=== PATIENT | female | born 1970 | race African-American/Black ===

== ENCOUNTER 2017-01-28 13:32 | Emergency (ER) | payer BC ==
[2015-11-26 21:47] VITALS: BMI 24.0
[~2017-01-28 13:32] MED LIST: AMITRIPTYLINE100 MG PO; ATIVAN0.5 MG PO; BUTALB-APAP-CA1 EACH PO; ELMIRON100 MG PO; LEVAQUIN500 MG PO; PHENERGAN25 M1; PHENERGAN25 M1 PO; TORADOL10 MG PO; VOLTAREN75 MG PO
[2017-01-28 15:23] LABS: BASOPHILS 0.4 % (0.0-2.0); EOSINOPHILS 0.9 % (0-7); HEMATOCRIT 32.9 % (36.0-48.0); HEMOGLOBIN 10.6 g/dL (12-16); IMMATURE GRANULOCYTES 0.1 % (0-5); MCHC 32.2 g/dL (31.0-37.0); MCV 90.1 fL (80.0-100.0); MEAN PLATELET VOLUME 9.8 fL (7.4-10.4); NEUTROPHILS 68.6 % (40-80); PLATELET COUNT 272 10x3/uL (130-400); RBC 3.65 10x6/uL (4.00-5.40); RDW 13.8 % (11.5-14.5); WBC 7.9 10x3/uL (4.8-10.8)
[2017-01-28 15:33] LABS: APPEARANCE CLEAR (CLEAR); BILIRUBIN NEGATIVE (NEGATIVE); COLOR ORANGE (YELLOW); GLUCOSE NEGATIVE (NEGATIVE); KETONE NEGATIVE (NEGATIVE); LEUKOCYTE ESTERASE NEGATIVE (NEGATIVE); NITRITE POSITIVE (NEGATIVE); PROTEIN NEGATIVE (NEGATIVE); UROBILINOGEN NORMAL (NORMAL)
[2017-01-28 15:34] LABS: BACTERIA FEW /hpf (NONE SEEN); EPITHELIAL CELLS 0-5 /hpf (0-5); RED CELLS - URINE NONE SEEN /hpf (0-5); WHITE CELLS - URINE 0-5 /hpf (0-5)
[2017-01-28 15:37] LABS: UDS - AMPHET NEGATIVE QUAL (NEGATIVE); UDS - BARB POSITIVE QUAL (NEGATIVE); UDS - BENZO NEGATIVE QUAL (NEGATIVE); UDS - COCAINE NEGATIVE QUAL (NEGATIVE); UDS - METH NEGATIVE QUAL (NEGATIVE); UDS - OPIATE NEGATIVE QUAL (NEGATIVE); UDS - PCP NEGATIVE QUAL (NEGATIVE); UDS - THC NEGATIVE QUAL (NEGATIVE)
[2017-01-28 15:37] LABS: ALBUMIN 2.9 g/dL (3.4-5.0); ANION GAP 9.1 mmol/L (8-16); BILIRUBIN - TOTAL 0.1 mg/dL (0.2-1.3); CARBON DIOXIDE 28.9 mmol/L (21.0-32.0); CREATININE - SERUM 0.9 mg/dL (0.6-1.3); PROTEIN - SERUM 6.4 g/dL (6.4-8.2)
== END 2017-01-28 17:01 | disposition home or self-care (01) ==
LOC: D.ER 13:32
PROVIDERS: Emergency Medicine
DX: R55 Syncope and collapse (principal); I95.9 Hypotension, unspecified

== ENCOUNTER → 2019-04-12 09:00 | Outpatient (CLI) | payer OTHER ==
[2015-11-26 21:47] VITALS: BMI 24.0
--- NOTE | 2019-04-17 10:06 | EC ---
PATIENT:BOWEN DATE OF SERVICE: 04/12/19 SEX: F MEDICAL RECORD: [id number] DATE OF : 74 [facility] AGE OF PATIENT: 48 ADMISSION DATE: 04/12/19 REFERRING PHYSICIAN: INTERPRETING PHYSICIAN: JAZMINE STANTON MD ECHOCARDIOGRAM REPORT ECHO CHARGES 4 ECHO COMPLETE Date: 04/12/19 CLINICAL DIAGNOSIS: PVC'S/CP/PALPITATIONS/HTN ECHOCARDIOGRAPHIC MEASUREMENTS (adult normal given) AC root (d.<3.7cm) 3.4 cm LV Septum d (<1.2 cm> 1.4 cm Valve Excursion 2.0 cm LV Septum (systole) 1.5 cm Left Atria (s.<4.0cm> 3.4 cm LVPW d(<1.2cm) 1.1 cm RV (d.<2.3cm) 2.2 cm LVPW (sytole) 1.5 cm LV diastole(<5.6CM) 3.9 cm MV E-F(>70mm/sec) cm LV systole 2.9 cm LVOT Diameter 2.1 cm MV exc.(>10mm) cm Est.ejection fraction (50-75%) % DOPPLER: LVIT cm/sec A 76.0 cm/sec E 52.0 cm/sec LA cm/sec RVSP 29.0 mmHg LVOT 72.0 cm/sec AOP1/2T m/s Asc. Ao 126 cm/sec RVOT 52.0 cm/sec RA cm/sec PA 77.0 cm/sec AV Gradient Peak 6.3 mmHg AV Mean 3.9 mmHg AV Area 2.2 cm MV Gradient Peak 2.3 mmHg MV Mean 0.92 mmHg MV Area cm COMMENTS: OP - HC Ethyl Blender: 1 OTONIEL GURNEE Medical Services Coordinator: 3 Dr. Burns TAPE# PACS Pericardial Effusion N DATE OF SERVICE: 04/12/2019 Adequate 2-D echo, color-flow and spectral Doppler, and M-mode. Borderline LVH. LV internal dimension is normal. Wall motion is normal. EF is greater than or equal to 55%. Aortic valve is tricuspid. No evidence of stenosis by Doppler interrogation. Left atrium is normal at 3.4 cm. Mitral valve shows no prolapse. Trace MR. Right-sided chamber is grossly normal. Trace TR. ECHOCARDIOGRAM REPORT [id number] INGE WISEMAN TRANSINT:[id number] Voice Confirmation ID: [id number] DOCUMENT ID: [id number] JAZMINE STANTON MD at 1006 CC: [id number] DICTATION DATE: 04/12/19 1605 PSYCHIATRIC NP: 04/13/19 0214 DEP CLI 04/12/19 [place] [id number] [place] [id number]
== END | disposition home or self-care (01) ==
LOC: D.HCCARDIO 09:00
PROVIDERS: ATTEND Internal Medicine Interventional Cardiology
DX: R07.9 Chest pain, unspecified (principal)

== ENCOUNTER → 2019-05-15 19:59 | Outpatient (CLI) | payer OTHER ==
[2015-11-26 21:47] VITALS: BMI 24.0
== END | disposition home or self-care (01) ==
LOC: D.LABREF 19:59
PROVIDERS: ATTEND Urology
DX: R31.9 Hematuria, unspecified (principal); D72.829 Elevated white blood cell count, unspecified

== ENCOUNTER 2019-05-30 07:10 | Day surgery (SDC) | payer OTHER ==
[~2019-05-30] VITALS: Ht 157.5 cm; Wt 57.2 kg
[~2019-05-30 07:10] MED LIST changes: +LOPRESSOR25 MG PO
[2019-05-30 07:33] LABS: HEMOGLOBIN 12.9 g/dL (12-16); MCH 30.2 pg (26.0-34.0); MCHC 33.9 g/dL (31.0-37.0); MEAN PLATELET VOLUME 9.4 fL (7.4-10.4); RBC 4.27 10x6/uL (4.00-5.40); RDW 14.2 % (11.5-14.5); WBC 7.4 10x3/uL (4.8-10.8)
[2019-05-30 08:05] VITALS: BP 132/86; Ht 157.5 cm; Wt 57.2 kg
--- NOTE | 2019-05-30 13:00 | OP ---
PATIENT NAME: INGE WISEMAN MEDICAL RECORD: [id number] :74 LOCATION:D.OPS ADMISSION DATE: SURGEON: NIGEL YADAV MD DATE OF OPERATION: 05/30/2019 SURGEON: Nigel Yadav MD ANESTHESIA: TIVA by Adalid Perla CRNA DIAGNOSIS: Interstitial cystitis. PROCEDURES: Cystoscopy, hydrodistention and intravesical Rimso instillation. FINDINGS: Diffuse bladder inflammation with no Hunner's ulcers seen. Single ureteral orifices bilaterally. No bladder tumors. There is a recessed urethral meatus with a lot of folds around it, which make it difficult to identify. BLOOD LOSS: None. CLINICAL HISTORY: This is a 49-year-old female G3, P3, A0, who is referred for Hunner's ulcer, positive interstitial cystitis. This was diagnosed at [facility] by biopsy of the ulcer. She has been on Elmiron and now that she lost her job she cannot afford the Elmiron. She has significant symptoms still and we are going to treat her with cystoscopy, hydrodistention and intravesical Rimso instillation. She is not allergic to any medications. She was given Ancef professional services manager to the OR. DESCRIPTION OF PROCEDURE: The patient was given IV sedation. She was placed in lithotomy position and prepped and draped. A 21-Senegalese cystoscope was introduced in the bladder. Findings are as outlined above. A 600 mL were introduced into the bladder and held for 2 minutes. The bladder was then emptied. Attempts to put a red rubber catheter into the urethral meatus were very frustrating. There are lots of folds around the meatus and the meatus itself was retracted quite a bit in the anterior vaginal wall. Finally, I had to place the 21-Senegalese scope back in and confirmed that I was in the bladder under cystoscopy. The lens was then removed, leaving the scope sheath in place. A 10-Senegalese red rubber catheter was then introduced through the lumen of the scope sheath. Once the catheter was in the bladder, we withdrew the scope sheath, leaving the catheter in the bladder. Through the catheter, we injected 50 mL of intravesical Rimso solution. The catheter was then withdrawn. She will hold the solution in for 15 minutes and then void it out. I will see her in followup in 2 weeks' time to check on her voiding symptoms. TRANSINT:[id number] Voice Confirmation ID: [id number] DOCUMENT ID: [id number] NIGEL YADAV MD at 1300 CC: [id number] DICTATION DATE: 05/30/19 1041 CAREER CENTER ADVISOR: 05/30/19 1150 REG [facility] [address] [place] [id number]
--- NOTE | 2019-05-30 15:42 | NUR ---
1100 PT UNABLE TO HOLD URINE ASSISTED TO BATHROOM,VOIDED NO PINK URINE. PLAIN YELLOW URINE. 1120 IV REMOVED 1130 PT GIVEN INSTRUCTIONS AND D/C HOME WITH FAMILY
== END 2019-05-30 11:30 | disposition home or self-care (01) ==
LOC: D.OPS 07:10 → D.PAN 09:30 → D.OPS 10:40
PROVIDERS: Anesthesiology; ATTEND Urology
DX: N30.10 Interstitial cystitis (chronic) without hematuria (principal); Z01.812 Encounter for preprocedural laboratory examination

== ENCOUNTER → 2019-06-23 17:57 | Outpatient (CLI) | payer SELFPAY ==
[2019-05-30 08:05] VITALS: BMI 23.1
== END | disposition home or self-care (01) ==
LOC: D.LABREF 17:57
PROVIDERS: ATTEND Urology
DX: R31.9 Hematuria, unspecified (principal)

== ENCOUNTER → 2019-07-12 18:45 | Outpatient (CLI) | payer OTHER ==
[2019-05-30 08:05] VITALS: BMI 23.1
[~2019-07-12 18:45] MED LIST changes: +CYMBALTA30 MG PO; +GALCANEZUMAB 120 MG/ML INJ
== END | disposition home or self-care (01) ==
LOC: D.LABREF 18:45
PROVIDERS: ATTEND Urology
DX: N39.0 Urinary tract infection, site not specified (principal)

== ENCOUNTER → 2019-07-26 20:37 | Outpatient (CLI) | payer OTHER ==
[2019-05-30 08:05] VITALS: BMI 23.1
== END | disposition home or self-care (01) ==
LOC: D.LABREF 20:37
PROVIDERS: ATTEND Urology
DX: N39.0 Urinary tract infection, site not specified (principal)

== ENCOUNTER → 2019-08-04 16:39 | Outpatient (CLI) | payer OTHER ==
[2019-05-30 08:05] VITALS: BMI 23.1
[~2019-08-04 16:39] MED LIST changes: -CYMBALTA30 MG PO; -GALCANEZUMAB 120 MG/ML INJ
== END | disposition home or self-care (01) ==
LOC: D.LABREF 16:39
PROVIDERS: ATTEND Urology
DX: R31.9 Hematuria, unspecified (principal)

== ENCOUNTER 2019-09-07 05:30 | Day surgery (SDC) | payer OTHER ==
[2019-09-05 12:24] LABS: HEMATOCRIT 37.4 % (36.0-48.0); HEMOGLOBIN 12.2 g/dL (12-16); MCH 29.8 pg (26.0-34.0); MCHC 32.6 g/dL (31.0-37.0); MCV 91.4 fL (80.0-100.0); MEAN PLATELET VOLUME 9.5 fL (7.4-10.4); RBC 4.09 10x6/uL (4.00-5.40); RDW 13.3 % (11.5-14.5); WBC 6.1 10x3/uL (4.8-10.8)
[~2019-09-07] VITALS: Ht 157.5 cm; Wt 61.7 kg
[~2019-09-07 05:30] MED LIST changes: +CYMBALTA30 MG PO; +GALCANEZUMAB 120 MG/ML INJ
[2019-09-07 06:09] VITALS: BP 123/83; Ht 157.5 cm; Wt 61.7 kg
[2019-09-07] MEDS ORDERED: MECLIZINE HCL25 MG PO (06:18)
--- NOTE | 2019-09-07 10:03 | NUR ---
0945-REC'D FROM RR. AWAKE AND ALERT, IV PATENT,RATES PAIN 4/10 AND SUBSIDING. IV PATENT TO LEFT WRIST AT KVO. ABD SOFT NON DISTENDED. VSS. CL IN EASY REACH, AT BEDSIDE. TOLERATING ICE WATER AWAITING ON TRAY'S FROM KITCHEN
--- NOTE | 2019-09-07 11:09 | OP ---
PATIENT NAME: INGE WISEMAN MEDICAL RECORD: [id number] :74 LOCATION:D.OPS ADMISSION DATE: SURGEON: DEMI YADAV MD DATE OF OPERATION: 09/07/2019 SURGEON: Demi Yadav MD ANESTHESIA: General anesthesia by Shahram Jerez CRNA DIAGNOSES: Interstitial cystitis, urge urinary incontinence, and female stress incontinence. PROCEDURES: Cystoscopy, hydrodistention and intravesical Botox injection of 100 units. Intravesical Rimso instillation. Pubovaginal sling with [employer] Obtryx II mesh graft. FINDINGS: On cystoscopy, single ureteral orifices bilaterally with no bladder injury. No bladder tumors, diffuse bladder inflammation. ESTIMATED BLOOD LOSS: Less than 50 mL. CLINICAL HISTORY: This is a 49-year-old female, who has a history of interstitial cystitis and she also has stress and urge urinary incontinence. For the urge urinary incontinence, she has been on Myrbetriq, which is partly helpful. She continues to have pelvic pain consistent with interstitial cystitis as in the past. She had Rimso treatment in the past and they did work for her. She also wanted to have the stress incontinence addressed at the same time. Risk of mesh use was discussed including graft infection, graft erosion, graft extrusion, vagina pain, and dyspareunia. Adverse outcomes of surgery include persistent stress urinary incontinence, urinary retention, or incomplete bladder emptying, de nayely or exacerbation of preexisting urge incontinence. She wishes to proceed with surgery. She is not allergic to any medications. She was given Ancef cash application clerk to the OR. DESCRIPTION OF PROCEDURE: The patient was given induction of general anesthesia in supine position. She was then placed into lithotomy position and she was shaved, prepped and draped. A weighted speculum was placed to hold the posterior vaginal wall down. A Chaudhry catheter was inserted into the urethra. The urethra is abnormal in that it is surrounded by a large number of skin folds. It is also somewhat split and I had to use the obturator on the cystoscope in order to identify the urethra. A 16-Nepali Chaudhry catheter was inserted and put to bag drainage. A #1 nylon sutures were placed on each labia majora to retract it laterally. These stay sutures were anchored to the medial thighs. The anterior vaginal wall was then infiltrated with Pitressin solution. Twenty units of vasopressin was dissolved in 100 mL of injectable normal saline. This was used for hydrodissection in the periurethral space and the bladder neck region. A vertical midline incision about 1 cm in length was then made over the urethra in the anterior vaginal wall. Dissection was made with Metzenbaum scissors and the plane between the urethra and the vaginal mucosa. Laterally, we extended to the pubocervical fascia, which was perforated. The obturator membrane on each side was cleared. I then landmarked for the pubovaginal sling insertion site for a transobturator approach. This is inferior to the adductor longus muscle. The point here was marked with a marking pen and a stab incision was made on each side. The helical trocars were OPERATIVE REPORT [id number] BOWEN then passed deep to the descending pubic ramus and through the anterior apex of the obturator membrane. The tip then exited through the vaginal dissection space. The graft was attached to the needle tip and then the trocars were withdrawn resulting in transobturator passage of the graft. There is a tab on the midpoint of the graft and this tab was placed under the mid urethra. Thereafter, the tab was removed entirely. The Chaudhry catheter was removed. Cystoscopy was performed. Findings are as outlined above. While I was performing cystoscopy, I hydrodistended the bladder to at least 600 mL. A Bhupinder injection needle was then inserted and 10 different locations on the bladder mucosa 1 mL of Botox solution was injected. Each mL of Botox solution had 10 units of Botox dissolved in it. We spared the ureteral orifices and the trigonal area and the injection. Once this was done, the cystoscope was removed, leaving the 600 mL of fluid in the bladder. With suprapubic pressure, we could see leakage of fluid per the urethra. The sling tension was then gradually tighten. It should be noted that we also lowered the legs, so that she was in the low lithotomy position in order to adjust the sling tension. Once the flow of the fluid per the urethra was significantly slowed down, I did not add any more sling tension. I did not want to completely occlude thus sling due to the risk of causing urinary retention. At this point, the clear plastic sheath material on either side of the sling was removed with a hemostat between the sling and the urethra to prevent increase in graft tension while the clear plastic sheath material was removed. The graft arms were cut off where they exited the inguinal stab incisions. The stab incisions were closed using simple interrupted 4-0 Vicryl. The vaginal dissection space was irrigated out with normal saline and then the vaginal incision was closed using running 4-0 Monocryl. The bladder was emptied using a red rubber catheter. Through the catheter, we then instilled 50 mL of intravesical Rimso solution. Vaginal packing was then inserted. The red rubber catheter was removed, leaving the solution in the bladder. The vaginal packing will be removed prior to the patient going home. If the patient cannot void today, she will be going home with a Chaudhry catheter. I will see her next week to check on her symptoms. TRANSINT:[id number] Voice Confirmation ID: [id number] DOCUMENT ID: [id number] DEMI YADAV MD at 1109 CC: [id number] DICTATION DATE: 09/07/19910 RESTRICTIVE PREPARATION OPERATOR: 09/07/19 [id number] [place] [address]
--- NOTE | 2019-09-07 13:38 | NUR ---
1000-FULL LIQUID TRAY TO ROOM.
--- NOTE | 2019-09-07 13:39 | NUR ---
1100-DISCHARGE CRITERIA MET. ABLE TO AMBULATE AND URINATE WITHOUT COMPLICATIONS. VAGINAL PACKING REMOVED. STABLE CONDITION. REVIEWED POST OPERATIVE INSTRUCTIONS WITH PT. SPOUSE AT BEDSIDE. PT VERBALIZED UNDERSTANDING WITHOUT FURTHER QUESTIONS OR CONCERNS. ESCORTED OUT VIA W/C WITH SPOUSE AWAITING TO DRIVE HOME.
== END 2019-09-07 11:00 | disposition home or self-care (01) ==
LOC: D.OPS 05:30 → D.PAN 08:30 → D.OPS 08:30
PROVIDERS: Anesthesiology; ATTEND Urology
DX: N30.10 Interstitial cystitis (chronic) without hematuria (principal); N39.46 Mixed incontinence

== ENCOUNTER → 2019-09-14 17:17 | Outpatient (CLI) | payer OTHER ==
[2019-09-07 06:09] VITALS: BMI 24.9
[~2019-09-14 17:17] MED LIST changes: +MECLIZINE HCL25 MG PO
== END | disposition home or self-care (01) ==
LOC: D.LABREF 17:17
PROVIDERS: ATTEND Urology
DX: R82.998 Other abnormal findings in urine (principal)

== ENCOUNTER → 2019-10-10 20:27 | Outpatient (CLI) | payer OTHER ==
[2019-09-07 06:09] VITALS: BMI 24.9
== END | disposition home or self-care (01) ==
LOC: D.LABREF 20:27
PROVIDERS: ATTEND Urology
DX: R31.9 Hematuria, unspecified (principal); D70.8 Other neutropenia

== ENCOUNTER → 2019-10-25 16:38 | Outpatient (CLI) | payer OTHER ==
[2019-09-07 06:09] VITALS: BMI 24.9
== END | disposition home or self-care (01) ==
LOC: D.LABREF 16:38
PROVIDERS: ATTEND Urology
DX: N39.0 Urinary tract infection, site not specified (principal)

== ENCOUNTER → 2019-12-07 18:16 | Outpatient (CLI) | payer OTHER ==
[2019-09-07 06:09] VITALS: BMI 24.9
== END | disposition home or self-care (01) ==
LOC: D.LABREF 18:16
PROVIDERS: ATTEND Urology
DX: R82.90 Unspecified abnormal findings in urine (principal); R31.9 Hematuria, unspecified; R82.998 Other abnormal findings in urine

== ENCOUNTER → 2019-12-22 19:33 | Outpatient (CLI) | payer SELFPAY ==
[2019-09-07 06:09] VITALS: BMI 24.9
[~2019-12-22 19:33] MED LIST changes: +OMEPRAZOLE40 MG PO; +VALIUM5 MG PO
== END | disposition home or self-care (01) ==
LOC: D.LABREF 19:33
PROVIDERS: ATTEND Urology
DX: N39.0 Urinary tract infection, site not specified (principal)

== ENCOUNTER → 2020-04-23 11:08 | Outpatient (CLI) | payer BC ==
[2020-01-02 08:04] VITALS: BMI 25.6
--- NOTE | 2020-04-25 08:17 | EC ---
PATIENT:BOWEN DATE OF SERVICE: 04/23/20 SEX: F MEDICAL RECORD: [id number] DATE OF : 74 LOCATION:D[facility] AGE OF PATIENT: 49 ADMISSION DATE: 04/23/20 REFERRING PHYSICIAN: INTERPRETING PHYSICIAN: JAZMINE STANTON MD ECHOCARDIOGRAM REPORT ECHO CHARGES 4 ECHO COMPLETE Date: 04/23/20 CLINICAL DIAGNOSIS: HTN HX OF BISCUPID AOV ECHOCARDIOGRAPHIC MEASUREMENTS (adult normal given) AC root (d.<3.7cm) 3.1 cm LV Septum d (<1.2 cm> 1.5 cm Valve Excursion 1.4 cm LV Septum (systole) 1.8 cm Left Atria (s.<4.0cm> 3.2 cm LVPW d(<1.2cm) 1.8 cm RV (d.<2.3cm) 3.0 cm LVPW (sytole) 2.0 cm LV diastole(<5.6CM) 5.6 cm MV E-F(>70mm/sec) cm LV systole 3.9 cm LVOT Diameter 2.1 cm MV exc.(>10mm) 1.5 cm Est.ejection fraction (50-75%) % DOPPLER: LVIT cm/sec A 58.0 cm/sec E 47.0 cm/sec LA cm/sec RVSP 23 mmHg LVOT 97 cm/sec AOP1/2T m/s Asc. Ao 123 cm/sec RVOT 49 cm/sec RA cm/sec PA 70 cm/sec AV Gradient Peak 6.03 mmHg AV Mean 3.14 mmHg AV Area 3.2 cm MV Gradient Peak 2.62 mmHg MV Mean 1.10 mmHg MV Area cm COMMENTS: Shredding Specialist: 2 HUYEN DAVIS Pharmacy Data Analyst: 3 Dr. Burns TAPE# PACS Pericardial Effusion N DATE OF SERVICE: Adequate 2D, color flow imaging, spectral Doppler, and M-Mode. Mild LVH. LV internal dimension is normal. Wall motion is normal. EF is greater than or equal to 55%. Aortic valve is bicuspid actually; however, there is no significant gradient. Trivial AI by color flow imaging. Left atrium is normal at 3.2 cm. Mitral valve shows no prolapse. Trace MR. Right-sided chambers are grossly normal. Trace to mild TR. ECHOCARDIOGRAM REPORT [id number] BOWENFebruary TRANSINT:[id number] Voice Confirmation ID: [id number] DOCUMENT ID: [id number] JAZMINE STANTON MD at 0817 CC: [id number] DICTATION DATE: 04/23/20 163 [employer] ARCHITECT: 04/24/20 0205 DEP CLI 04/23/20 [place] [id number] [place] [id number]
== END | disposition home or self-care (01) ==
LOC: D.HCCECHO 11:00
PROVIDERS: ATTEND Internal Medicine Interventional Cardiology
DX: I10 Essential (primary) hypertension (principal)

== ENCOUNTER → 2020-05-08 12:07 | Outpatient (CLI) | payer BC ==
[2020-01-02 08:04] VITALS: BMI 25.6
--- NOTE | 2020-05-10 08:52 | ST ---
PATIENT:BOWEN MEDICAL RECORD: [id number] SEX: F LOCATION:[facility] ORDER #: ADMISSION DATE: 05/08/20 AGE OF PATIENT: 49 REFERRING PHYSICIAN: INTERPRETING PHYSICIAN: JAZMINE STANTON MD DATE OF SERVICE: 05/08/2020 PROCEDURE: Treadmill stress test. Baseline ECG is normal. Exercised for 9 minutes on Mark Anthony protocol. Maximum heart rate 149 beats per minute, greater than 89% max predicted. No ECG changes of ischemia. No symptoms of ischemia. No arrhythmias noted. Good exercise tolerance for age. TRANSINT:[id number] Voice Confirmation ID: [id number] DOCUMENT ID: [id number] JAZMINE STANTON MD at 0852 CC: [id number] DICTATION DATE: 05/09/20 1516 FEATHEREDGE MACHINE OPERATOR: 05/10/20 0206 DEP CLI 05/08/20 [id number] [place] [address]
== END | disposition home or self-care (01) ==
LOC: D.HCCARDIO 05-07 15:00
PROVIDERS: ATTEND Internal Medicine Interventional Cardiology
DX: R07.9 Chest pain, unspecified (principal)

== ENCOUNTER 2021-04-13 12:37 | Emergency (ER) | payer SELFPAY ==
[~2021-04-13] VITALS: Ht 157.5 cm; Wt 65.9 kg
[2021-04-13 12:38] VITALS: Ht 157.5 cm; Wt 65.9 kg
[2021-04-13 12:56] LABS: BASOPHILS 0.2 % (0-2); EOSINOPHILS 0.1 % (0-7); HEMATOCRIT 38.7 % (36.0-48.0); IMMATURE GRANULOCYTES 0.2 % (0-5); LYMPHOCYTE ABS# 1.88 10x3/uL (1.18-3.74); LYMPHOCYTES 18.3 % (15-50); MCHC 33.6 g/dL (31.0-37.0); MCV 89.2 fL (80.0-100.0); MEAN PLATELET VOLUME 10.1 fL (7.4-10.4); MONOCYTES 5.1 % (2-11); NEUTROPHIL ABS# 7.82 10x3/uL (1.56-6.13); NEUTROPHILS 76.1 % (40-80); PLATELET COUNT 309 10x3/uL (130-400); RBC 4.34 10x6/uL (4.00-5.40); RDW 13.9 % (11.5-14.5); WBC 10.3 10x3/uL (4.8-10.8)
[2021-04-13 12:58] VITALS: BP 135/80
[2021-04-13 13:09] LABS: CALC OSMOLALITY 277 mosm/kg (275-300); CALCIUM 9.4 mg/dL (8.5-10.1); CARBON DIOXIDE 20.9 mmol/L (21.0-32.0); CHLORIDE - SERUM 100 mmol/L (98-107); CREATININE - SERUM 0.8 mg/dL (0.6-1.3); GLUCOSE 100 mg/dL (74-106); POTASSIUM - SERUM 3.8 mmol/L (3.5-5.1); SODIUM 138 mmol/L (136-145); UREA NITROGEN 18 mg/dL (7-18); eGFR NON AFRICAN AMERICAN 81 mL/min (90-120)
[2021-04-13 13:18] LABS: ALBUMIN 3.5 g/dL (3.4-5.0); ALKALINE PHOSPHATASE 172 U/L (30-120); ALT (SGPT) 36 U/L (10-68); AMYLASE - SERUM 61 U/L (25-115); BILIRUBIN - TOTAL 0.36 mg/dL (0.2-1.3); PROTEIN - SERUM 7.7 g/dL (6.4-8.2)
[2021-04-13 13:21] LABS: LIPASE 47 U/L (73-393); TROPONIN-I < 0.017 ng/mL (0.000-0.060)
[2021-04-13 13:38] LABS: BILIRUBIN NEGATIVE (NEGATIVE); KETONE LARGE mg/dL (NEGATIVE); NITRITE NEGATIVE (NEGATIVE); UROBILINOGEN NORMAL mg/dL (< 2)
[2021-04-13 13:39] LABS: BACTERIA MODERATE HPF (NONE SEEN); SQUAMOUS EPITHELIAL 0-5 HPF (0-4)
[2021-04-13 13:40] LABS: HCG URINE NEGATIVE (NEGATIVE)
[2021-04-13] MEDS ORDERED: ZOFRAN ODT4 MG/UDTAB PO (14:48)
== END 2021-04-13 15:12 | disposition home or self-care (01) ==
LOC: D.ER 12:37
PROVIDERS: Family Medicine
DX: R10.9 Unspecified abdominal pain (principal); G43.909 Migraine, unspecified, not intractable, without status migrainosus; R11.2 Nausea with vomiting, unspecified; I10 Essential (primary) hypertension; K21.9 Gastro-esophageal reflux disease without esophagitis